=== PATIENT | female | born 1960 | race Caucasian/White ===

== ENCOUNTER → 2018-01-17 | Outpatient (CLI) | payer OTHER | LOC: MAMMO 15:11 | PROVIDERS: ATTEND Internal Medicine | DX: Z12.31 Encounter for screening mammogram for malignant neoplasm of breast (principal) | CPT/HCPCS: 77067 ==

== ENCOUNTER → 2018-03-03 | Outpatient (CLI) | payer OTHER ==
--- NOTE | 2018-03-03 12:55 | Diagnostic Imaging Report ---
EXAMINATION: PA and lateral views of the chest. COMPARISON: None CLINICAL HISTORY: Cough DISCUSSION: Lines/tubes: None. Lungs: The lungs are well inflated and clear. No pneumonia or pulmonary edema. Pleura: No pleural effusion or pneumothorax. Heart and mediastinum: The cardiomediastinal silhouette is normal. Bones and soft tissues: No acute bony abnormalities. IMPRESSION: No acute cardiopulmonary abnormalities. Signed by: Dr. Hollis Rodriguez M.D. on 03/03/2018 12:51 PM
== END ==
LOC: RAD 12:16
PROVIDERS: ATTEND Internal Medicine
DX: R05 Cough (principal); Z87.891 Personal history of nicotine dependence
CPT/HCPCS: 71046

== ENCOUNTER → 2018-09-22 | Outpatient (CLI) | payer OTHER ==
--- NOTE | 2018-09-22 19:26 | Diagnostic Imaging Report ---
Exam: Lumbar spine 2 views History: Back pain Comparison: None. Findings: No fracture. Bone demineralization. Mild degenerative disc disease L4-5 and L5-S1 with facet arthrosis. Impression: Mild degenerative disc disease L4-5 and L5-S1 with facet arthrosis. Signed by: Dr. Hollis Rodriguez M.D. on 09/22/2018 7:23 PM
== END ==
LOC: RAD 16:38
PROVIDERS: ATTEND Internal Medicine
DX: M54.5 Low back pain (principal)
CPT/HCPCS: 72110

== ENCOUNTER → 2018-12-10 | Day surgery (SDC) | payer OTHER ==
[2018-12-09 16:53] LABS: BASOPHILS % 0.5 % (0.0-1.0); EOSINOPHILS # (AUTO) 0.1 (0.0-0.4); EOSINOPHILS % 1.1 % (0.0-6.0); HEMOGLOBIN 11.9 g/dL (12.0-16.0); LYMPHOCYTES # (AUTO) 2.4 (1.0-3.2); LYMPHOCYTES % 43.7 % (18.0-39.1); MEAN CORPUSCULAR HEMOGLOBIN 32.2 pg (28-32); MEAN CORPUSCULAR VOLUME 94.9 fL (81-99); MONOCYTES # (AUTO) 0.6 (0.2-0.8); MONOCYTES % 11.3 % (4.4-11.3); NEUTROPHILS # (AUTO) 2.4 (2.1-6.9); NEUTROPHILS % 43.2 % (38.7-80.0); PLATELET COUNT 197 x10e3/uL (140-360); RED BLOOD COUNT 3.69 x10e6/uL (3.6-5.1); RED CELL DISTRIBUTION WIDTH 12.1 % (11.7-14.4)
[2018-12-09 17:05] LABS: INR 1.05; PROTHROMBIN TIME 14.2 seconds (11.9-14.5)
[2018-12-09 17:06] LABS: PARTIAL THROMBOPLASTIN TIME 28.6 seconds (23.8-35.5)
[2018-12-09 17:11] LABS: ALANINE AMINOTRANSFERASE 33 IU/L (0-55); ALBUMIN 3.8 g/dL (3.5-5.0); ALKALINE PHOSPHATASE 73 IU/L (40-150); ANION GAP 12.9 mmol/L (8-16); BLOOD UREA NITROGEN 12 mg/dL (7-26); BUN/CREATININE RATIO 16 (6-25); CALCIUM 9.1 mg/dL (8.4-10.2); CARBON DIOXIDE 24 mmol/L (22-29); CHLORIDE 105 mmol/L (98-107); CREATININE, SERUM 0.73 mg/dL (0.57-1.11); EST GLOMERULAR FILTRATION RATE > 60 ML/MIN (60-); GLUCOSE 99 mg/dL (74-118); POTASSIUM 3.9 mmol/L (3.5-5.1); SODIUM 138 mmol/L (136-145)
[~2018-12-10] MED LIST: FLONASE; MIDAZOLAM HCL 2 MG/2 ML VIAL ONE; OXYBUTYNIN CHLOR5 MG PO; PANTOPRAZOLE SO40 MG PO; PROPOFOL IV EMULSION 10 MG/ML 20 ML VIAL ONE
--- OUTSIDE RECORDS SUMMARY | 2018-12-10 08:57 | XMS REPORT ---
Author Author [facility] Address Unknown Phone Unavailable Care Team Providers Care Leather Currier Name Role Phone MED RAHMAN Unavailable Unavailable Payers Payer Name Policy Type Policy Number Effective Date Expiration Date Problems This patient has no known problems. Allergies, Adverse Reactions, Alerts Allergy Name Allergy Type Status Severity Reaction(s) Onset Date Inactive Date Treating Clinician Comments No Known Allergies DA Active U 2018-03-31 00:00:00 Medications This patient has no known medications. Encounters Start Date/Time End Date/Time Encounter Type Admission Type Attending Clinicians Care Facility Care Department Encounter ID 2018-04-25 00:00:00 2018-04-25 00:00:00 Outpatient [facility] [id number] 2018-01-17 09:54:22 2018-01-17 09:54:22 Outpatient [facility] [id number] 2017-10-18 09:04:04 2017-10-18 09:04:04 Outpatient [facility] [id number] Results Test Description Test Time Test Comments Text Results Atomic Results Result Comments SP LUMBAR, COMPLETE MIN 4VW 2018-09-22 19:22:00 [facility] [address], [place] [address] Patient Name: ZACHARY WYNN MR #: [id number] : 1960 Age/Sex: 58/F Req #: [id number] Adm Physician: Ordered by: MED RAHMAN MD Report #: [id number] Location: [facility] Room/Bed: Procedure: [id number] DX/SP LUMBAR, COMPLETE MIN 4VW Exam Date: 09/22/18 Exam Time: 1650 REPORT STATUS: Signed Exam: Lumbar spine 2 views History: Back p ain Comparison: None. Findings: No fracture. Bone demineralization. Mild degenerative disc disease L4-5 and L5-S1 with facet arthrosis. Impression: Mild degenerative disc disease L4-5 and L5-S1 with facet arthrosis. Signed by: Dr. Nazario Ríos M.D. on 09/22/2018 7:23 PM Dictated By: NAZARIO RÍOS MD 22 Transcribed By: ALVERTO on 09/22/181922 COPY TO: MED RAHMAN MD STOMACH 2018-04-03 14:27:00 RUN DATE: 04/03/18 [facility] PAGE 1 RUN TIME: 1428 Specimen Inquiry RUN USER: INTERFACE PATIENT: ZACHARY WYNN LOC: [facility] Villanueva #: [id number] AGE/SX: 57/F ROOM: RE04/02/18REG DR: Sivakumar Mcelroy : 62 BED: DIS: STATUS: [facility] TLOC: SPEC #: [id number] RECD: 04/02/18 STATUS: TERI BETINA #: [id number] BERNARDO: 04/02/18 DR: Sivakumar Mcelroy MD ENTERED: 04/02/18 SP TYPE: STOMACH OTHR DR: Med Rahman MD ORDERED: GROSS COPIES TO: Med Rahman MD [address], [place] [id number] Sivakumar Mcelroy MD [address], [address] [place], [place] [id number] PROCEDURES: GROSS (04/03/18-1400) TISSUES: 1. ANTRAL BIOPSY - H-PYLORI 2. ESOPHAGUS, NOS - BX CLINICAL HISTORY COLLECTION DATE: 04/02/18 FINAL DIAGNOSIS Antrum, biopsy: REACTIVE GASTROPATHY NO INTESTINAL METAPLASIA SEEN NEGATIVE FOR HELICOBACTER PYLORI, GIEMSA CONTROL STAINS APPROPRIATELY NEGATIVE FOR MALIGNANCY Esophagus, biopsy: MILD CHRONIC INFLAMMATION WITH REACTIVE EPITHELIAL CHANGES, MIXED SQUAMOUS ESOPHAGEAL AND GASTRIC-TYPE MUCOSA NEGATIVE FOR INTESTINAL METAPLASIA, DYSPLASIA, AND MALIGNANCY DMW/casi D [id number], [id number] CONTINUED ON NEXT PAGE RUN DATE: 04/03/18 [facility] PAGE 2 RUN TIME: 1428 Specimen Inquiry RUN USER: INTERFACE SPEC #: [id number] PATIENT: ZACHARY WYNN #[id number] (Continued) MACROSCOPIC The first specimen is received in formalin, labeled with the patient's name, identified as "antrum bx", and consists of rashid-pink biopsy tissue measuring 0.35 cm, submitted as (1) for H E and Giemsa stains. The second specimen is received in formalin, labeled with the patient's name, identified as "esophagus bx", and consists of two rashid-pink biopsy tissue measuring 0.1 and 0.3 cm each, submitted as (2). GROSS PERFORMED AT [facility] [address] [place] [address] 195274 (p)[phone] MICROSCOPIC MICROSCOPIC PERFORMED AT [facility] All of the stains, including any controls performed, stain appropriately. [facility] [address] [place] [address] (p)[phone] PERFORMING SITE Diagnosis performed at: [facility] [address] [place], [place] [id number] Signed SIGNATURE ON FILE Rabia Ace 04/03/18 1427 END OF REPORT CHEST 2 VIEWS 2018-03-03 12:51:00 [place] [address] Patient Name: ZACHARY WYNN MR #: [id number] : 1960 Age/Sex: 57/F Req #: [id number] Adm Physician: Ordered by: MED RAHMAN MD Report #: [id number] Location: RAD Room/Bed: Procedure: [id number] DX/CHEST 2 VIEWS Exam Date: Exam Time: REPORT STATUS: Signed EXAMINATION: PA and lateral views of the chest. COMPARISON: None CLINICAL HISTORY: Cough DISCUSSION: Lines/tubes: None. Lungs: The lungs are well inflated and clear. No pneumonia or pulmonary edema. Pleura: No pleural effusion or pneumothorax. Heart and mediastinum: The cardiomediastinal silhouette is normal. Bones and soft tissues: No acute bony abnormalities. IMPRESSION: No acute cardiopulmonary abnormalities. Signed by: Dr. Nazario Ríos M.D. on 03/03/2018 12:51 PM Dictated By: NAZARIO RÍOS MD 1251 Transcribed By: ALVERTO on 03/03/18 1251 COPY TO: MED RAHMAN MD MAMMOGRAPHY DIGITAL SCR BILAT 2018-01-17 15:50:00 [facility] [address] [place] [address] Patient Name: ZACHARY WYNN MR #: [id number] : 1960 Age/Sex: 57/F Req #: [id number] Adm Physician: Ordered by: MED RAHMAN MD Report #: [id number] Location: MAMMO Room/Bed: Procedure: [id number] MG/MAMMOGRAPHY DIGITAL SCR BILAT Exam Date: 01/17/18 Exam Time: 1539 REPORT STATUS: Signed #[id number] - [id number] #BILATERAL DIGITAL SCREENING MAMMOGRAM WITH CAD: 01/17/2018 CLINICAL: Routine screening. Comparison is made to exam dated: 10/19/2016 mammogram - [facility]. Current study contains 9 films. There are scattered fibroglandular elements in both breasts. Current study was also evaluated with a Computer Aided Detection (CAD) system. Bilateral breast implants are stable. Vascular calcification in the right breast. No significant masses, calcifications, or other findings are seen in either breast. There has been no significant interval change. IMPRESSION: BENIGN There is no mammographic evidence of malignancy. A 1 year screening mammogram is recommended. The patient will be notified by letter of the results. Efraín Rose Jr., D.O. cw/:01/30/2018 14:48:52 Hotbed Operator: Yaz SCHULTZ)([place]), [facility] letter sent: Compared to Prior B9 Mammogram BI-RADS: 2 Benign Dictated By: EFRAÍN ROSE DO 1448 Transcribed By: FREDERICK on 01/30/18 1448 COPY TO: MED RAHMAN MD
[2018-12-10 11:45] VITALS: BP 154/96
== END | disposition home or self-care (01) ==
LOC: OR 08:30
PROVIDERS: ATTEND Internal Medicine Gastroenterology
DX: K59.00 Constipation, unspecified (principal); D12.5 Benign neoplasm of sigmoid colon; K64.8 Other hemorrhoids; K21.9 Gastro-esophageal reflux disease without esophagitis; K44.9 Diaphragmatic hernia without obstruction or gangrene; R74.0 Nonspecific elevation of levels of transaminase and lactic acid dehydrogenase [LDH]; B18.2 Chronic viral hepatitis C; K76.0 Fatty (change of) liver, not elsewhere classified; R00.1 Bradycardia, unspecified; F17.210 Nicotine dependence, cigarettes, uncomplicated; Z88.1 Allergy status to other antibiotic agents; Z91.013 Allergy to seafood; Z01.810 Encounter for preprocedural cardiovascular examination; Z01.812 Encounter for preprocedural laboratory examination
CPT/HCPCS: 36415; 45385; 80053; 85025; 85610; 85730; 93005; J2250; J2704; 45378

== ENCOUNTER → 2019-03-13 | Outpatient (CLI) | payer OTHER ==
[~2019-03-13] MED LIST changes: -MIDAZOLAM HCL 2 MG/2 ML VIAL ONE; -PROPOFOL IV EMULSION 10 MG/ML 20 ML VIAL ONE
--- NOTE | 2019-03-13 08:47 | Diagnostic Imaging Report ---
EXAM: Complete Abdominal Ultrasound INDICATION: Hepatitis C. Abnormal liver enzymes ^[id number] ^[id number] ^ABNORMAL LIVER ENZYMES / HEPATITIS C COMPARISON: None. TECHNIQUE: Transverse and longitudinal images of the upper abdomen were obtained. FINDINGS: Liver: Size: 12.3 cm in the right midclavicular line, normal Appearance: Normal echogenicity, smooth contour Mass: No focal masses Spleen: Size: 8.7 cm in length, normal Echogenicity: Normal Mass: No focal masses Gallbladder: Stones/Sludge: None Wall: 0.1 cm Appearance: No wall thickening, pericholecystic fluid or hydrops. Sonographic Morrow's Sign: Negative Bile Ducts: Intrahepatic Ducts: No dilatation Extrahepatic Ducts: Common bile duct measures 0.2 cm, no dilatation Pancreas: Visualized portions of the pancreatic head, neck and proximal body are normal. Kidneys: Length: Right 10.3 cm Left 9.9 cm Echogenicity: Normal Collecting System: No hydronephrosis Stone: None Cyst/Mass: None Vessels: Aorta: Visualized portions are normal Inferior Vena Cava: Visualized portions are normal Main Portal Vein: 1.1 cm, normal size with hepatopetal flow. Free Fluid: No ascites or pleural effusion IMPRESSION: Normal abdominal ultrasound. Signed by: Dr. Ashish Parada M.D. on 03/13/2019 8:44 AM
== END ==
LOC: US 07:37
PROVIDERS: ATTEND Internal Medicine Gastroenterology
DX: R74.0 Nonspecific elevation of levels of transaminase and lactic acid dehydrogenase [LDH] (principal); B18.2 Chronic viral hepatitis C; K21.9 Gastro-esophageal reflux disease without esophagitis; K44.9 Diaphragmatic hernia without obstruction or gangrene; K76.0 Fatty (change of) liver, not elsewhere classified; D12.6 Benign neoplasm of colon, unspecified; K64.8 Other hemorrhoids; K59.00 Constipation, unspecified; Z71.3 Dietary counseling and surveillance; Z68.1 Body mass index [BMI] 19.9 or less, adult; F17.200 Nicotine dependence, unspecified, uncomplicated
CPT/HCPCS: 76700

== ENCOUNTER → 2019-03-26 | Outpatient (CLI) | payer OTHER | LOC: MAMMO 16:10 | PROVIDERS: ATTEND Internal Medicine | DX: Z12.31 Encounter for screening mammogram for malignant neoplasm of breast (principal) | CPT/HCPCS: 77067 ==

== ENCOUNTER → 2020-04-12 | Outpatient (CLI) | payer OTHER | LOC: MAMMO 12:08 | PROVIDERS: ATTEND Internal Medicine | DX: Z12.31 Encounter for screening mammogram for malignant neoplasm of breast (principal) | CPT/HCPCS: 77067 ==

== ENCOUNTER → 2022-09-28 | Outpatient (CLI) | payer OTHER | LOC: MAMMO 09:40 | PROVIDERS: ATTEND Internal Medicine | DX: Z12.31 Encounter for screening mammogram for malignant neoplasm of breast (principal) | CPT/HCPCS: 77067 ==